=== PATIENT | male | born 1960 | race Caucasian/White ===

== ENCOUNTER 2025-03-09 18:06 | Emergency (ER) | payer SELFPAY ==
[2025-03-09 18:16] VITALS: BP 104/58; PULSE 84; TEMP 36.7; O2SAT 95; BMI 23.7
--- NOTE | 2025-03-09 18:57 | ED.GENADUL1 ---
HPI HPI - General Adult General Chief complaint: Wound/Laceration Stated complaint: LACERATION ON L ARM Time Seen by Provider: 03/09/25 18:57 Source: patient Mode of arrival: walk-in Limitations: no limitations Related Data Allergies Allergy/AdvReac Type Severity Reaction Status Date / Time No Known Drug Allergies Allergy Verified 03/09/25 18:16 Opioid HPI Opioid Management Most Recent Opioid Data: Last Pain Scale 4 Today, 18:16 PFSH PFSH Social History Little interest or pleasure in doing things: not at all Feeling down, depressed, or hopeless: not at all Exam Constitutional Vital Signs, click to edit/add: Last Vital Signs Temp 98.1 F 03/09/25 18:16 Pulse 84 03/09/25 18:16 Resp 20 03/09/25 18:16 BP 104/58 03/09/25 18:16 Pulse Ox 95 03/09/25 18:16 O2 Del Method Room Air 03/09/25 18:16 Course Vital Signs Vital signs: Vital Signs Temperature 98.1 F 03/09/25 18:16 Pulse Rate 84 03/09/25 18:16 Respiratory Rate 03/09/25 18:16 Blood Pressure 104/58 03/09/25 18:16 Pulse Oximetry 95 03/09/25 18:16 Oxygen Delivery Method Room Air 03/09/25 18:16 Temperature 98.1 F 03/09/25 18:16 Pulse Rate 84 03/09/25 18:16 Respiratory Rate 03/09/25 18:16 Blood Pressure 104/58 03/09/25 18:16 Pulse Oximetry 95 03/09/25 18:16 Oxygen Delivery Method Room Air 03/09/25 18:16 Discharge Plan Discharge Patient Disposition: Left Without Being Seen
== END 2025-03-09 18:57 | disposition left against medical advice (07) ==
PROVIDERS: Emergency Provider Student in an Organized Health Care Education/Training Program
DX: Z53.21 Procedure and treatment not carried out due to patient leaving prior to being seen by health care provider (principal)
CPT/HCPCS: 99281

== ENCOUNTER 2025-08-28 16:54 | Emergency (ER) | payer MEDICARE, SELFPAY ==
[2025-08-28 17:01] VITALS: BP 136/79; PULSE 93; TEMP 36.8; O2SAT 98; BMI 25.8
--- NOTE | 2025-08-28 17:18 | CT_ITS ---
The [address] [address] Patient Name: KANDI KENDRICK MRN: [id number] date: 1960 Sex: M Assigned Patient Location: ED.MAIN Current Patient Location: ED.MAIN Accession/Order Number: [id number] Exam Date: 08/28/2025 17:30 Report Date: 08/28/2025 18:27 At the request of: LILA FREEMAN MD Procedure: CT head/brain wo con CT BRAIN WITHOUT CONTRAST: CLINICAL HISTORY: S[place] COMPARISON: CTA 01/18/2023 TECHNIQUE: Contiguous axial unenhanced images were obtained through the brain. This CT exam was performed using one or more following dose reduction techniques: Automated exposure control, adjustment of the mA and/or kV according to patient size, or use of iterative reconstruction technique. FINDINGS: There is no evidence of midline shift, intra or extra-axial fluid collection, hemorrhage or CT evidence of acute large vascular stroke. Central involutional changes and csik-to-tpopbqpo chronic small vessel ischemic disease. 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 . Visualized intraorbital contents appear unremarkable. Kdzc-wn-pfhuorpk ethmoid sinus disease. Mastoids are clear. The surrounding soft tissues are normal. CT/CT head/brain wo con IMPRESSION: NO ACUTE INTRACRANIAL ABNORMALITY. CHRONIC SMALL VESSEL CHANGES. BASILAR TIP ANEURYSM AGAIN IDENTIFIED. Impression dictated by: Enrique Mora M.D. 08/28/2025 6:27 PM Dictation Location: [place] [address] Electronically authenticated by: [id number] Y Date: 08/28/2025 18:27
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
--- OUTSIDE RECORDS SUMMARY | 2025-08-28 17:27 | XMS_ITS | Clinical Summary ---
Author Organization [facility] tem Address [id number] [address] [place] [address] Care Team Providers Care Fork Truck Driver Name Role Phone No Pcp, No Pcp Primary Care Provider Unavailabl e Allergies No known active allergies Medications No known medications Immunizations ImmunizationAdministration DatesNext EyeIcfz0103/09/2025 Social History Tobacco UseTypesPacks/DayYears UsedDateSmoking Tobacco: Never AssessedHunger ScreeningAnswerDate RecordedWithin the past 12 months we worried whether our food would run out before we got money to buy more.Never True03/09/2025Within the past 12 months the food we bought just didn't last and we didn't have money to get more.Never True03/09/2025Sex and Gender InformationValueDate RecordedSex Assigned at BirthNot on fileLegal RekYvis2001/18/2023 8:09 PM EDTGender Identity Not on fileSexual OrientationNot on file Last Filed Vital Signs Vital SignReadingTime TakenCommentsBlood Sernpzok543/70003/09/2025 9:03 PM EDT Efkzy9682/21/2025 9:33 PM AHEDgsgdsfnixk50.6 ??C (97.8 ??F)03/09/2025 7:38 PM EDTRespiratory Cdtb017403/09/2025 9:33 PM EDTOxygen Frwfhecsgy28%03/09/2025 9:33 PM EDTInhaled Oxygen Concentration--Nifxtx91.6 kg (180 lb)03/09/2025 7:38 PM EDT Ayfkwf738.9 cm (6')03/09/2025 7:38 PM EDTBody Mass Index24.41003/09/2025 7:38 PM EDT Plan of Treatment Health MaintenanceDue DateLast DoneCommentsDepression Ywhrytvwk38/16/1972Tobacco Wblnfmwnr34/16/1972Zoster (Shingles) Vaccine (1 of 2)2010Influenza Vaccine 05/20/2025Fall Risk Ftxotyzuf12/16/2025dult BMI Jgkdxdelb46/21/18673403/09/2025 DTaP,Tdap and Td Vaccines (2 - Td or Tdap)RSV ( or age 60+ yrs) (1 - 1-dose 75+ series)2035 [employer] Not on file Insurance Care Teams Team MemberRelationshipSpecialtyStart DateEnd Date No Pcp, No Pcp ONIEL Hernandez [id number] PCP - [facility]03/09/25
--- OUTSIDE RECORDS SUMMARY | 2025-08-28 17:27 | XMS_ITS | Clinical Summary ---
Author Organization [facility] Address [address] [place] [address] Care Team Providers Care Cane Pusher Name Role Phone Unavailable Primary Care Provider Unavailabl e Allergies No known active allergies Medications MedicationSigDispense QuantityRefillsLast FilledStart DateEnd DateStatus ipratropium-albuterol (DUONEB) 0.5-2.5 (3) MG/3ML nebulizer solution 3 mL by Nebulization route 4 times daily..11/29/2014ctive budesonide-formoterol (SYMBICORT) 160-4.5 mcg/puff Aerosol take 2 puffs by inhalation every 12 hours..01/13/2015ctive Ibuprofen 200 MG Cap Indications: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 15 tablet 03/16/2018Active Active Problems ProblemNoted DateDiagnosed DateEncounter for venous access device care05/24/2017 Chronic lcqupktgxg88/05/2015Emphysematous bleb of lung11/21/2014Bronchiectasis 11/21/20145641Dknnheuxtmcw75/05/2015COPD (chronic obstructive pulmonary disease) 11/21/2014Solitary lung mlxpip7311/21/20147318Wsqugdzhvzdxk30/05/2015 Social History Tobacco UseTypesPacks/DayYears UsedDateSmoking Tobacco: Heavy SmokerCigarettes1 40Smokeless Tobacco: Never Tobacco Cessation:Ready to Q uit: No Comments:03/16/18 Alcohol UseStandard Drinks/WeekCommentsYes4 (1 standard drink = 0.6 oz pure alcohol)daily-beerSex and Gender InformationValueDate RecordedSex Assigned at BirthNot on fileLegal LzePmfo2109/24/2016 5:18 PM ESTGender GsrkjljlBwaa90/19/2017 10:51 AM EDTSexual OrientationNot on file Last Filed Vital Signs Vital SignReadingTime TakenCommentsBlood Ydxsufca340/8603/16/2018 8:53 AM EDT Pggpo170903/16/2018 8:53 AM ZDDApqjlyqhcpf81.4 ??C (97.6 ??F)03/16/2018 8:23 AM EDTRespiratory Uagt653603/16/2018 8:53 AM EDTOxygen Acwqcrsigk73%03/16/2018 8:53 AM EDTInhaled Oxygen Concentration--Geelts39.5 kg (195 lb)03/16/2018 6:46 AM EDT Hsdxcp254.4 cm (6' 1 )03/16/2018 6:46 AM EDTBody Mass Index25.7303/16/2018 6:46 AM EDT Plan of Treatment Health MaintenanceDue DateLast DoneCommentsHEPATITIS C VIRUS VMNUQMPBM1960 OJEMFBJ51 1960TDAP (ADULT)1979LIPID RLXFBPQRY50/16/2000COLORECTAL CANCER SCREENING JABAFALRGN66/16/2005LUNG CANCER SCREENING UPWZGGZBEQ62/16/2010 PNEUMOCOCCAL VACCINE SERIES (1 of 1 - PCV)2010ZOSTER (SHINGLES) VACCINE (1 of 2)2010PROSTATE CANCER SCREENING LQXXVSQEAK37/16/2015COVID-19 VACCINE ( - 2024- season)2025INFLUENZA VACCINE (#1)2025BDOMINAL AORTIC ANEURYSM HIGH RISK GXAVGC8706/04/2025RSV VACCINE (1 - 1-dose 75+ series)2035 HEP B VACCINEAged OutNo longer eligible based on patient's age to complete this topic
--- OUTSIDE RECORDS SUMMARY | 2025-08-28 17:27 | XMS_ITS | Clinical Summary ---
Author Organization [facility] Address [address] [place] [address] Care Team Providers Care Blending Coordinator Name Role Phone Unavailable Primary Care Provider Unavailabl e Social History Tobacco UseTypesPacks/DayYears UsedDateSmoking Tobacco: Never AssessedSex and Gender InformationValueDate RecordedSex Assigned at BirthNot on fileLegal Sex Male12/01/2022 11:08 PM EDTGender IdentityNot on fileSexual OrientationNot on file Last Filed Vital Signs Vital SignReadingTime TakenCommentsBlood Pressure--Pulse--Temperature-- Respiratory Rate--Oxygen Saturation--Inhaled Oxygen Concentration--Xzkcvj57 kg (205 lb)10/09/2020 12:00 PM YYJXehwbb532.4 cm (6' 1 )10/09/2020 12:00 PM ESTBody Mass Index27.05010/09/2020 12:00 PM EST Plan of Treatment Not on file
--- OUTSIDE RECORDS SUMMARY | 2025-08-28 17:27 | XMS_ITS ---
Author Organization [facility] Address [address] [place] [address] Care Team Providers Care Chauffeur Name Role Phone Unavailable Primary Care Provider Unavailabl e Active Problems ProblemNoted DateDiagnosed DateEncounter for venous access device care05/24/2017 Chronic ppsodvfshf26/05/2015Emphysematous bleb of lung11/21/2014Bronchiectasis 11/21/20141416Oruuaqydcjgv05/05/2015COPD (chronic obstructive pulmonary disease) 11/21/2014Solitary lung luftun1211/21/20141411Dyvalrtqgmncd88/05/2015 Current Treatment and Therapy Plans No current plan information found. Past Treatment and Therapy Plans
== END 2025-08-28 18:48 | disposition home or self-care (01) ==
PROVIDERS: Emergency Provider Emergency Medicine
DX: S16.1XXA Strain of muscle, fascia and tendon at neck level, initial encounter (principal); X58.XXXA Exposure to other specified factors, initial encounter
CPT/HCPCS: 70450; 72125; 76376; 99284